=== PATIENT | male | born 1995 | race Caucasian/White ===

== ENCOUNTER 2022-11-18 20:23 | Emergency (ER) | payer OTHER ==
[2022-11-18 20:30] VITALS: BP 122/77; PULSE 75; RESP 18; TEMP 98.7; BMI 25.6
[2022-11-18] MEDS ORDERED: SODIUM CHLORIDE 1,000 ML IV STA (22:06)
[2022-11-18] MEDS ORDERED: ONDANSETRON 4 MG/2 ML VIAL IVPUSH ONE (22:06)
[2022-11-18] MEDS ORDERED: morphine SULFATE 4 MG/ML VIAL IVPUSH ONE (22:06)
[2022-11-18] MEDS ORDERED: morphine SULFATE 4 MG/ML VIAL ONE (22:18)
[2022-11-18 22:48] LABS: BASO % 0.6 % (0-2.0); EOS % 3.4 % (0-4.5); HEMATOCRIT 40.4 % (35.4-49); HEMOGLOBIN 14.1 GM/dL (11.7-16.9); LYMPH % 28.2 % (8-40); MCHC 34.8 g/dl (32.0-35.9); MEAN CELL VOLUME 92.1 fl (80-96); MEAN PLT VOLUME 7.7 fl (7.5-11.1); MONO % 6.4 % (3.8-10.2); NEUT % 61.4 % (42.8-82.8); PLATELET COUNT 186 10^3/uL (134-434); RBC 4.39 M/mm3 (4.00-5.60); RDW 12.1 % (11.9-15.9)
[2022-11-18 23:55] LABS: CALCIUM 8.7 mg/dL (8.5-10.1)
[2022-11-18 23:59] LABS: TOT PROT 7.1 g/dl (6.4-8.2)
[2022-11-19] LABS: BILIRUBIN,TOTAL 0.3 mg/dL (0.2-1)
[2022-11-19 02:24] LABS: URINE APPEARANCE CLEAR; URINE BILIRUBIN NEGATIVE (NEGATIVE); URINE COLOR YELLOW; URINE GLUCOSE (UA) NEGATIVE (NEGATIVE); URINE KETONE NEGATIVE (NEGATIVE); URINE LEUK ESTERASE NEGATIVE (NEGATIVE); URINE NITRITE NEGATIVE (NEGATIVE); URINE PROTEIN NEGATIVE (NEGATIVE); URINE UROBILINOGEN 0.2 mg/dL (0.2-1.0)
== END 2022-11-19 02:08 | disposition home or self-care (01) ==
LOC: JER 20:23
PROC: 3E033GC Introduction of Other Therapeutic Substance into Peripheral Vein, Percutaneous Approach (ICD-10-PCS; principal; 2022-11-18)
DX: R10.84 Generalized abdominal pain (principal)
CPT/HCPCS: 36415; 74177-TC; 76705-TC; 80053; 81003; 82272; 83690; 85025; 87086; 93005; 93010; 99285-25; Q9967